=== PATIENT | male | born 1970 | race Caucasian/White ===

== ENCOUNTER 2016-06-06 20:55 | Emergency (ER) | payer OTHER ==
[~2016-06-06 20:55] MED LIST: FLEXERIL10 MG PO; PERCOCET 325 MG1 TA2 PO
--- NOTE | 2016-06-06 21:58 | ED MVC/FALL/TRAUMA COMPLAINT ---
History of Present Illness General Chief Complaint: Trunk Injury Stated Complaint: LEFT SIDED RIB PAIN, S/P FALL, WORK RELATED Source: patient, old records Exam Limitations: no limitations Vital Signs & Intake/Output Vital Signs & Intake/Output Vital Signs Date Time Temp Pulse Resp B/P Pulse O2 O2 Flow FiO2 Ox Delivery Rate 06/063 98.3 88 18 130/82 98 Room Air 06/06 2102 98.7 97 22 133/85 98 Part ReBreather ED Intake and Output 06/07 0000 06/06 1200 Intake Total Output Total Balance Patient 225 lb Weight Allergies Coded Allergies: MDX - Naproxen (NAPROXEN) (Severe, ANAPHYLAXIS 03/27/13) MDX - Amitriptyline (From ELAVIL) (Intermediate, OTHER 03/27/13) MDX - Haloperidol (From HALDOL) (Intermediate, ANAPHYLAXIS 03/27/13) Reconcile Medications CYCLOBENZAPRINE HCL (Flexeril) 10 MG TABLET 1 TAB PO TID PRN PAIN OXYCODONE HCL/ACETAMINOPHEN (Percocet 5-325 MG Tablet) 325 MG/5 MG TAB 1 TAB PO Q4-6 PRN PRN PAIN Triage Note: PER PT L RIB PAIN S/P FALL AT WORK. NO LOC NO HEAD STRIKE. Triage Nurses Notes Reviewed? yes Onset: Abrupt Duration: hour(s): (12), constant Timing: recent history Severity: moderate Severity Numbers: 8 Injuries/Fall Location: chest Method of Injury: fall Loss of Consciousness: no loss of consciousness Modifying Factors: Worsens With: breathing. Associated Symptoms: denies HPI: Is a 45-year-old male with history of chronic TMJ for which he is on fentanyl patches and Percocet presents emergency room complaining of left chest wall pain after he fell earlier this morning. 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 He is not taken anything for his pain today. The pain is worse with palpation, lifting and breathing. No cough no hemoptysis. There was no head strike no neck or back pain there is no other injury no abdominal pain upper or lower extremity injury or no other associated symptoms or radiation of pain (ARIANNE BAH,ARIANNA) Past History Travel History Traveled to [place] past 21 day No Medical History Any Pertinent Medical History? see below for history Neurological: TMJ EENT: NONE Cardiovascular: NONE Respiratory: NONE Gastrointestinal: NONE Hepatic: NONE Renal: NONE Musculoskeletal: NONE Psychiatric: NONE Endocrine: NONE Blood Disorders: NONE Surgical History Surgical History: none Psychosocial History What is your primary language Belarusian Tobacco Use: Current Daily Use Daily Tobacco Use Amount/Type: => 5 Cigarettes daily Family History Hx Contributory? No (ARIANNA SCOTT) Review of Systems Review of Systems Constitutional: Reports: see HPI. All Other Systems: Reviewed and Negative Comments Review of systems: See HPI, All other systems negative. Constitutional, no chills no fever, no malaise HEENT: No visual changes no sore throat no congestion Cardiovascular: No chest pain , no palpitation Skin, no rashes, no change in skin Respiratory: No dyspnea no cough no sputum GI: No nausea no vomiting, no diarrhea, : No dysuria Muscle skeletal: No joint pain, no joint swelling, no back pain, no neck pain, Neurologic: No numbness no headache Psych: No stress,. Heme/endocrine: No bruising no bleeding Immunology: No lymphadenopathy (ARIANNA SCOTT) Physical Exam Physical Exam General Appearance: well developed/nourished, no apparent distress, alert Comments: Well-developed well-nourished person in no acute distress HEENT: Normal EENT exam; PERRL, EOMI. HEAD is atraumatic. moist mucous membranes. Neck: Supple, normal range of motion Back: Nontender, Full range of motion Cardiovascular: Regular rate and rhythms no murmurs rubs Respiratory: Chest tender over the lateral left harrison wall, minimal ecchymosis.There were no bony deformities, no asymmetry. No respiratory distress. Patient speaking in full complete sentences. Breath sounds clear to auscultation bilaterally: NO W/R/R Abdomen: Soft, nontender nondistended, no appreciable organomegaly. Extremity: No edema, full range of motion of extremities Neuro: Alert oriented x3, motor sensory normal, There were no obvious focal neurologic abnormalities. Skin: No appreciable rash on exposed skin, skin is warm and dry. Psych: Mood and affect is normal, memory and judgment is normal. Core Measures ACS in differential dx? No Severe Sepsis Present: No Septic Shock Present: No (ARIANNA SCOTT) Progress Differential Diagnosis: abd injury, C/T/L spine injury, ext injury, pelvis injury, pnemothorax, spinal cord injury, rib fx Plan of Care: Orders Procedure Date/time Status XRY-RIBS UNILATERAL-LEFT 06/07 2107 Active X-rays ordered from triage patient declining anything for pain offered I discussed the patient his x-ray results need for supportive care and states he feels comfortable taking his pain medication as prescribed at home he'll follow- up with his primary care. Patient was educated on use of incentive spirometer he feels comfortable with this plan I answered all his questions (ARIANNA SCOTT) Diagnostic Imaging: Viewed by Me: Radiology Read. Discussed w/RAD: Radiology Read. Radiology Impression: PATIENT: FELICIA REESE PRESENT AGE: 45 PATIENT ACCOUNT NO: [id number] : 71 LOCATION: [facility] ORDERING PHYSICIAN: ARIANNA BAH SERVICE DATE: 06/06/16-2107 EXAM TYPE: RAD - XRY- RIBS UNILATERAL-LEFT AP VIEW OF THE CHEST AND 3 VIEWS OF THE LEFT RIBS CLINICAL INFORMATION: Fall onto ice with left rib pain with inspiration. COMPARISON: None available. FINDINGS: Symmetric lung inflation. No focal consolidation, pleural effusion, or pneumothorax. RTX silhouette size is normal. There are no acute osseous findings. There are no displaced rib fractures. IMPRESSION: No acute pulmonary process. No displaced rib fractures. DICTATED BY: LENI FELIX MD DATE/TIME DICTATED:06/06/162199 DRAG CAR RACER:KIRSTEN DATE/TIME TRANSCRIBED:06/06/162199 CONFIDENTIAL, DO NOT COPY WITHOUT APPROPRIATE AUTHORIZATION. <Electronically signed in Other Vendor System> SIGNED BY: LENI FELIX MD 06/06/162208 (ARIANNA SCOTT) Departure Departure Time of Disposition: 2213 Disposition: HOME OR SELF CARE Condition: Stable Clinical Impression Primary Impression: Rib contusion Referrals: ARIANNA CASAS MD (PCP/Family) Additional Instructions: continue taking your pain medication as prescribed. rest, ice, follow up with your pmd or return to the er with any concerns. Departure Forms: Customer Survey Employee Industrial Accident General Discharge Information (ARIANNA SCOTT) PA/CONCESSION ATTENDANT Co-Sign Statement Statement: ED Attending supervision documentation- [] I saw and evaluated the patient. I have also reviewed all the pertinent lab results and diagnostic results. I agree with the findings and the plan of care as documented in the PA's/CONCESSION ATTENDANT's documentation. [X] I have reviewed the ED Record and agree with the PA's/CONCESSION ATTENDANT's documentation. [] Additions or exceptions (if any) to the PAs/CONCESSION ATTENDANT's note and plan are summarized below: [] (NATALYIA WILLIAMSON,SIMEON)
--- NOTE | 2016-06-06 22:09 | RADIOLOGY REPORT ---
AP VIEW OF THE CHEST AND 3 VIEWS OF THE LEFT RIBS CLINICAL INFORMATION: Fall onto ice with left rib pain with inspiration. COMPARISON: None available. FINDINGS: Symmetric lung inflation. No focal consolidation, pleural effusion, or pneumothorax. RTX silhouette size is normal. There are no acute osseous findings. There are no displaced rib fractures. IMPRESSION: No acute pulmonary process. No displaced rib fractures.
[2016-06-06 22:43] VITALS: BP 130/82
== END 2016-06-06 22:43 ==
LOC: ERH 20:55
DX: S20.212A Contusion of left front wall of thorax, initial encounter (principal); R07.89 Other chest pain; W00.0XXA Fall on same level due to ice and snow, initial encounter
CPT/HCPCS: 71100-LT